=== PATIENT | male | born 1965 | race Caucasian/White ===

== ENCOUNTER 2024-09-06 08:52 | Emergency (ER) | payer OTHER, SELFPAY ==
[2024-09-06] VITALS (8 sets, daily range): BP systolic 124–139; BP diastolic 70–87; PULSE 85–109; RESP 18–24; TEMP 36.6–36.8; O2SAT 92–95; BMI 18.8
--- NOTE | 2024-09-06 09:24 | EX.ED.DYSGE1 ---
HPI History of Present Illness Chief Complaint: General Illness Informant: patient Onset/Context/Timing Onset: Days (9) Context: Sudden Onset Timing: Continuous Quality: Aching Location: Generalized Worsened by: Nothing Relieved by: Nothing Narrative Narrative: Patient presents with cough and shortness of breath that has been getting worse over the past 9 days. Patient states he is coughing up white sputum. Patient admits to some fevers, chills, and sweats. Patient states he has been taking Mucinex with no improvement. Patient admits to general myalgias. Patient states he feels achy all over. Patient states nothing makes his symptoms better nothing makes them worse. Patient admits to some nausea but denies any vomiting. Patient admits to a headache and generalized weakness. [facility] Medical History Cigar smoker unmotivated to quit No acute medical problems Home Medications ?Medication ?Instructions ?Recorded ?Last Taken ?Type NK 09/06/24 Unknown History Allergy/AdvReac Type Severity Reaction Status Date / Time No Known Allergies Allergy Verified 09/06/24 08:55 Surgical History No significant past surgical history Social History Smoking Status: Current every day smoker tobacco type: cigarettes ROS ROS ED Constitutional Constitutional ED: Reports chills and sweats; Denies fever(s) Eyes Eyes: Denies blurry vision or diplopia ENT ENT ED: Denies rhinorrhea or sore throat Cardiovascular Cardiovascular: Denies chest pain or palpitations Respiratory/Chest Respiratory/Chest: Reports cough, dyspnea and sputum Gastrointestinal Gastrointestinal: Reports nausea; Denies vomiting Genitourinary Genitourinary ED: Denies dysuria or hematuria Musculoskeletal Musculoskeletal: Reports myalgias; Denies arthralgias Integumentary Denies abscess or rash Neurologic Neurologic: Reports headache(s) and weakness Allergic/Immunologic Allergic/Immunologic ED: Denies mouth swelling or urticaria EXAM Physical Exam Const Vital Signs: 09/06/24 08:54 09/06/24 09:17 09/06/24 09:17 Temperature 97.8 F 98.1 F Temperature Source Oral Oral Pulse Rate 109 H 109 H Respiratory Rate 20 H 22 H Respiratory Effort Normal Respiratory Pattern Normal Blood Pressure 139/84 H 138/87 H Blood Pressure Mean 102 104 Pulse Ox 95 92 Oxygen Delivery Method Room Air Room Air 09/06/24 10:00 09/06/24 10:53 09/06/24 11:00 Temperature 98.1 F 98.2 F Temperature Source Oral Oral Pulse Rate 90 92 89 Respiratory Rate 19 H 18 24 H Respiratory Effort Respiratory Pattern Blood Pressure 130/73 H 130/70 H 139/71 H Blood Pressure Mean 92 90 93 Pulse Ox 93 92 94 Oxygen Delivery Method Room Air Room Air Room Air Positive well nourished and well developed Constitutional Narrative: BMI is 18.9 General Appearance ED: well developed and NAD HEENT Reports moist mucous membranes Negative for trauma or tenderness Neck supple and no JVD Resp normal respiratory effort and clear to auscultation bilaterally Cardio regular rhythm Rate: tachycardic GI non-tender and non-distended Palpation: soft Extremity normal to inspection General Extremety ED: Negative for edema or tenderness General Extremity: Negative for edema Neuro oriented x3, CN's II-XII intact bilaterally and no sensory deficits noted Sensorium / Orientation: alert Motor Exam: strength 5/5 throughout Psych mental status grossly normal MDM MDM MDM Narrative Medical decision making narrative: Differential diagnosis includes pneumonia, bronchitis, viral illness, pulmonary embolism, cardiac dysrhythmia, cardiac ischemia, electrolyte abnormality, dehydration. CBC will be obtained to assess for leukocytosis and anemia. Basic metabolic profile will be obtained to assess for electrolyte abnormality and renal function. High-sensitivity troponin will be obtained to assess for cardiac ischemia. EKG will be obtained to assess for cardiac dysrhythmia and cardiac ischemia. CT of the chest will be obtained to assess for pulmonary embolism. COVID-19, influenza, and RSV PCR will be obtained for viral illness. History & Record Review Additional record(s) reviewed:: Prior outpatient record Lab Data Attestation: I reviewed the patient's lab results. Lab results narrative: CBC was reviewed. There is a leukocytosis of 22.6. The remainder is within normal limits. Basic metabolic profile was reviewed. CO2 was slightly low at 19. BUN was slightly elevated at 23. Creatinine was normal at 1.2. Glucose was slightly elevated at 138. COVID-19 PCR was reviewed and was negative. Influenza PCR was reviewed and was negative for influenza A and influenza B. RSV PCR was reviewed and was negative. Labs: Laboratory Results - last 24 hr 09/06/24 09:40 WBC 22.6 H RBC 5.17 Hgb 15.3 Hct 43.9 MCV 84.9 MCH 29.6 MCHC 34.9 RDW Std Deviation 38.8 RDW Coeff of Farrukh 12.5 Plt Count 281 MPV 9.7 Immature Gran % (Auto) 0.700 Neut % (Auto) 75.8 H Lymph % (Auto) 9.0 L Adams % (Auto) 13.8 H Eos % (Auto) 0.3 Baso % (Auto) 0.4 Absolute Neuts (auto) 17.1 H Absolute Lymphs (auto) 2.04 Nucleated RBC % 0 Sodium 134 Potassium 3.8 Chloride 100 Carbon Dioxide 19.0 L Anion Gap 16 H BUN 23 H Creatinine 1.20 Estim Creat Clear Calc 62.54 Est GFR (MDRD) Non-Af 70 BUN/Creatinine Ratio 18.8 Glucose 138 H Calcium 9.3 Troponin T High Sens 22 Radiography CTA PE Study: No Evidence of PE and No Evidence of Dissection Diagnostic Testing: Clinical Impression(s) from Imaging Studies Chest CTA 09/06/24 10:30 IMPRESSION: 1. No acute pulmonary embolism. 2. Scattered bilateral consolidations, greatest within the left lower lobe, with retained secretions within the trachea and left bronchus. Findings are most compatible with aspiration pneumonitis/pneumonia. However pulmonary malignancy can not be excluded. Follow-up chest CT in 1 month is recommended to evaluate for resolution. 3. Severe emphysema. Reading Location: [facility] CT of the chest was obtained. There is no evidence of pulmonary embolism or aortic dissection. There is a left lower lobe infiltrate. There are other scattered consolidations. This was interpreted by the radiologist. Independently reviewed by myself. EKG Initial EKG: Attestation: I personally reviewed and interpreted this EKG as follows: Interpretation: No Acute Injury Pattern and Sinus Tachycardia (101) Comments: EKG was obtained. On my independent interpretation, it showed a sinus tachycardia with a rate of 101. [place] interval, QRS interval, and QTc intervals were all normal. [place] was normal. There are no acute ST or T wave changes. Prior EKG tracings: available for review Prior: Unchanged (11/05/2018) Treatment and Re-Evaluation :: Smoking cessation was discussed. Patient was given IV fluids. Patient was feeling better on reevaluation. Patient was given Rocephin and Zithromax here. Patient was advised of his findings. Patient has a curb 65 score of 1. Because of this, I feel the patient can be discharged home. Patient was given a prescription for Zithromax. Patient was instructed to follow-up with his primary care physician in 3 to 5 days. Patient was instructed to drink plenty of fluids. Patient was instructed to return if worse in any way. Patient understood and was agreeable with the plan. All questions were answered. Discharge Plan Triage Chief Complaint: General Illness ED Provider: Torrey Gray Dx/Rx/DC Orders Clinical Impression: Pneumonia, Nicotine dependence Instructions: ED Pneumonia (Adult) Prescriptions: No Action NK Primary Care Provider: Care Physician,Cheryle Primary Referrals: Felix Milner DO [Med Staff - [employer]] - 3-5 Days NOT,DEFINED [Non-Staff] - Print Language: [place] Disposition Disposition: Home, Self Care
--- NOTE | 2024-09-06 09:30 | EKG12_ITS ---
Test Reason : GENRAL Blood Pressure : */* mmHG Vent. Rate : 101 BPM Atrial Rate : 101 BPM P-R Int : 124 ms QRS Dur : 84 ms QT Int : 344 ms P-R-T Axes : 60 71 66 degrees QTcB Int : 446 ms Sinus tachycardia Low voltage QRS Septal infarct , age undetermined Abnormal ECG Confirmed by VENKAT GARCIA, ANGELES ([id number]), subeditor LAWANDA IHCKEY ([id number]) on 09/08/2024 8:32:46 AM Referred By: Confirmed By: ANGELES ROBLEDO MD
[2024-09-06] MEDS: 0.9% Normal Saline (1000mL) 1,000 ML 1000 ML IV (09:45)
[2024-09-06 09:48] LABS: Absolute Lymphocyte Count 2.04 X10^3/uL (0.83-4.51); Absolute Neutrophil Count 17.1 X10^3/uL (2.0-7.7); Basophil# 0.08 X10^3/uL; Basophil% 0.4 % (0-1); Eosinophil# 0.06 X10^3/uL; Eosinophils% 0.3 % (0-5); Hematocrit 43.9 % (40-54); Hemoglobin 15.3 g/dL (13.0-16.5); Lymphocyte # 2.04 X10^3/ul (0.83-4.51); Mean Corp Hgb Conc 34.9 g/dL (32-36); Mean Corpuscular Hgb 29.6 pg (27.0-32.0); Mean Corpuscular Volume 84.9 fL (80-94); Mean Platelet Vol. 9.7 fl (6.2-12.0); Monocyte# 3.12 X10^3/uL; Monocyte% 13.8 % (0-10); NRBC Flagged by Analyzer 0 % (0-5); Neutrophil # 17.14 X10^3/uL (2.7-7.7); Neutrophil % 75.8 % (47-70); POSITIVE DIFFERENTIAL YES; Platelet Count 281 K/mm3 (150-450); RBC Distribution Width CV 12.5 % (11.6-14.6); RBC Distribution Width SD 38.8 fl (35.1-43.9); Red Blood Count 5.17 M/mm3 (4.6-6.2); White Blood Count 22.6 K/mm3 (4.4-11.0)
[2024-09-06 09:57] LABS: Differential Indicated SCAN CRITERIA MET
[2024-09-06 10:04] LABS: Anion Gap 16 (5-15); BUN 23 mg/dL (4-19); BUN/Creat Ratio 18.8 RATIO (10-20); Calcium,Total 9.3 mg/dL (7.6-11.0); Chloride 100 mmol/L (98-108); EST Glomerular Filtration Rate 70 (>60); Estimated Creatinine Clearance 62.54 ml/min (50-250); Glucose 138 mg/dL (70-99); Potassium 3.8 mmol/L (3.3-5.1); Sodium Level 134 mmol/L (133-145)
[2024-09-06 10:24] LABS: Troponin T High Sensitivity 22 ng/L (<=22)
--- NOTE | 2024-09-06 10:30 | CT_ITS ---
PROCEDURE: CTA CHEST W/WO CONTRAST 09/06/2024 REASON FOR EXAM: DYSPNEA TECHNIQUE: CTA axial imaging of the chest with intravenous contrast. Coronal and Sagittal reconstruction series were provided. 3D, 3D post processing, 3D reconstructions, Maximum intensity projection (MIPs) Volume rendering and Shaded surface rendering was provided. PATIENT PREPARATION: Per protocol CONTRAST: Isovue 370 VOLUME: 100 mL One or more dose reduction techniques were used (e.g., Automated exposure control, adjustment of the mA and/or kV according to patient size, use of iterative reconstruction technique). RADIATION DOSE SUMMARY: CTDlvol: 18 mGy DLP: 300 mGycm COMPARISON: None. FINDINGS: Hardware: None. Lymph nodes: No axillary or mediastinal lymphadenopathy. Prominent bilateral hilar lymph nodes, [id number]. Heart: The heart is normal in size without pericardial effusion. Mild coronary artery and thoracic aortic calcifications. The great vessels are normal in caliber. Pulmonary Vessels: No filling defect within the segmental or subsegmental pulmonary arteries. Lungs and Airways: Retained secretions within the central trachea and left mainstem bronchus. Severe emphysema with scattered areas of scarring and bronchiectasis. Moderate-sized left lower lobe consolidation, and additional patchy areas of consolidation throughout the bilateral lungs. No pleural effusion or pneumothorax. Upper Abdomen: Scattered hepatic cysts and additional hypodensities. Hyperplasia of the left adrenal gland. Bones: Mild degenerative changes of the thoracic spine. CT/CTA Chest W/WO Contrast IMPRESSION: 1. No acute pulmonary embolism. 2. Scattered bilateral consolidations, greatest within the left lower lobe, wit h retained secretions within the trachea and left bronchus. Findings are most compatible with aspiration pneumonitis/pneumonia. However pulmonary malignancy can not be excluded. Follow-up chest CT in 1 month is recommended to evaluate for resolution. 3. Severe emphysema. Reading Location: [id number]
[2024-09-06 11:49] LABS: Troponin T High Sens 2 HR 18 ng/L (<=22)
--- NOTE | 2024-09-06 12:05 | NURSING ---
Blood and urine cx obtained and sent to lab.
[2024-09-06] MEDS: Azithromycin 500 MG in 0.9% Normal Saline (250mL Bag) 250 ML 255 MG IV (12:07)
[2024-09-06] MEDS: Ceftriaxone 2 GM in 0.9% Normal Saline (50mL MB+) 50 ML IV (12:13)
[2024-09-06 12:23] LABS: Bacteria 0 SEEN /hpf (None Seen); Mucous, Urine 0 SEEN /hpf (<or=2+); Red Blood Cells-Urine 0 SEEN /hpf (0-5); Squamous Epithelial Cells - UA 0 SEEN /hpf (0-5)
[2024-09-06 12:25] LABS: Color, Urine Yellow (Yellow); Glucose, Dipstick Normal (Normal); Ketone-Dipstick Negative (Negative); Leukocyte Esterase-Dipstick Negative /ul (Negative); Nitrite-Dipstick Negative (Negative); Occult Blood-Urine 25 /ul (Negative); Protein-Dipstick 30 mg/dl (Negative); Specific Gravity, Urine 1.015 (1.002-1.030); Urine Bilirubin Dipstick Negative (Negative); Urine Clarity Clear (Clear); Urine Urobilinogen Normal (Normal)
[2024-09-06 12:32] LABS: White Blood Cells 0-5 SEEN /hpf (0-5)
== END 2024-09-06 13:41 | disposition home or self-care (01) ==
PROVIDERS: Emergency Provider Emergency Medicine; Visit Provider Emergency Medicine
DX: J18.9 Pneumonia, unspecified organism (principal); F17.210 Nicotine dependence, cigarettes, uncomplicated; R51.9 Headache, unspecified
CPT/HCPCS: 71275; 80048; 81001; 84484; 85025; 87040; 87631; 93005; 96361; 96365; 96368; 99285; Q9967; A4216; J0696